=== PATIENT | female | born 1950 | race Two or more races ===

== ENCOUNTER → 2016-10-01 | Outpatient (CLI) | payer MEDICARE, MEDICAID ==
[~2016-10-01] MED LIST: ATEN50TA PO; OMEP20CA16 PO
--- NOTE | 2016-10-01 15:49 | RADRPT ---
PROCEDURE: Right knee radiographs. CLINICAL INDICATION: Right knee pain. TECHNIQUE: Four views. Weight bearing. Frontal, lateral, oblique, and patellar view. COMPARISON: No prior studies are available for comparison. FINDINGS: There is no fracture or dislocation. The soft tissues are normal. There are degenerative changes with osteophytes arising from all 3 joint compartment margins. There is medial joint compartment narrowing and patellofemoral joint compartment narrowing with deformity . There is no lytic or blastic lesion. There is no radiopaque foreign body. IMPRESSION: 1. Severe degenerative changes of the right knee. 2. No acute abnormality. RPTAT: QQ .Osmany Barajas MD, MD Date Time Electronically viewed and signed by .Osmany Barajas MD, MD on 10/01/2016 15:49 .R/
== END | disposition home or self-care (01) ==
LOC: HKI 14:56
PROVIDERS: ATTEND Orthopaedic Surgery
DX: M17.11 Unilateral primary osteoarthritis, right knee (principal); M25.561 Pain in right knee; Z79.82 Long term (current) use of aspirin; Z88.0 Allergy status to penicillin
CPT/HCPCS: 73564; G0463

== ENCOUNTER → 2016-10-10 | Outpatient (CLI) | payer MEDICARE, MEDICAID | END | disposition home or self-care (01) | LOC: HKI 11:40 | PROVIDERS: ATTEND Orthopaedic Surgery | DX: M17.11 Unilateral primary osteoarthritis, right knee (principal); M25.561 Pain in right knee; E66.9 Obesity, unspecified ==

== ENCOUNTER → 2016-11-28 | Outpatient (CLI) | payer MEDICARE, MEDICAID | END | disposition home or self-care (01) | LOC: HKI 10:58 | PROVIDERS: ATTEND Orthopaedic Surgery | DX: M17.11 Unilateral primary osteoarthritis, right knee (principal); M25.561 Pain in right knee; I10 Essential (primary) hypertension; F32.9 Major depressive disorder, single episode, unspecified; K21.9 Gastro-esophageal reflux disease without esophagitis; E66.9 Obesity, unspecified; Z85.3 Personal history of malignant neoplasm of breast | CPT/HCPCS: G0463 ==